=== PATIENT | male | born 1975 | race Caucasian/White ===

== ENCOUNTER 2019-07-05 19:10 | Emergency (ER) | payer OTHER, SELFPAY ==
--- NOTE | ~2019-07-05 | CT_ITS ---
EXAMINATION: CT brain wo con DATE: 07/05/2019 20:44 INDICATION: Head injury. TECHNIQUE: Computed tomography (CT) of the head was performed without intravenous contrast. The mA wa s adjusted according to patient size. Iterative reconstruction technique was employed. The dose-lengt h product was 605.33 mGy-cm. COMPARISON: None FINDINGS: There is no intracranial hemorrhage, acute infarction, or abnormal intracranial mass lesion . The ventricles are normal in size. There is mild mucosal thickening in the paranasal sinuses. The m astoid air cells are normal. The orbits are normal. IMPRESSION: 1. Normal brain. Reviewed, dictated and finalized at location A. IMPRESSION: 1. Normal brain.
--- NOTE | ~2019-07-05 | CT_ITS ---
EXAMINATION: CT cervical spine wo con DATE: 07/05/2019 20:45 INDICATION: Neck pain. TECHNIQUE: Computed tomography (CT) of the cervical spine was performed without intravenous contrast. Automated exposure control and iterative reconstruction technique were employed. The dose-length pro duct was 327.77 mGy-cm. COMPARISON: None FINDINGS: There is 4 degrees levocurvature of cervical spine. Vertebral body heights are normal. Ther e is moderately decreased disc height at C3-C4 and mildly decreased disc height at C4-C5. The followi ng disc levels are specifically discussed: C2-C3: There is no uncovertebral joint osteoarthritis. There is no facet joint osteoarthritis. There is no neural foraminal stenosis. There is no central canal stenosis. C3-C4: There is severe bilateral uncovertebral joint osteoarthritis. There is no facet joint osteoart hritis. There is mild bilateral neural foraminal stenosis. There is mild central canal stenosis. C4-C5: There is mild bilateral uncovertebral joint osteoarthritis. There is no facet joint osteoarthr itis. There is mild bilateral neural foraminal stenosis. There is mild central canal stenosis. C5-C6: There is no uncovertebral joint osteoarthritis. There is no facet joint osteoarthritis. There is no neural foraminal stenosis. There is no central canal stenosis. C6-C7: There is mild right uncovertebral joint osteoarthritis. There is no facet joint osteoarthritis . There is no neural foraminal stenosis. There is no central canal stenosis. C7-T1: There is no uncovertebral joint osteoarthritis. There is mild bilateral facet joint osteoarthr itis. There is no neural foraminal stenosis. There is no central canal stenosis. IMPRESSION: 1. No fracture. 2. Moderate cervical spondylosis. Reviewed, dictated and finalized at location A.
--- NOTE | ~2019-07-05 | CT_ITS ---
EXAMINATION: CT facial bones wo con DATE: 07/05/2019 20:45 INDICATION: Face injury. Jaw pain. TECHNIQUE: Computed tomography (CT) of the facial bones and maxillofacial region was performed withou t intravenous contrast. Automated exposure control and iterative reconstruction technique were employ ed. The dose-length product was 291.27 mGy-cm. COMPARISON: None. FINDINGS: There is soft tissue swelling of the chin. There is mild mucosal thickening in the paranasa l sinuses. There is a sagittal fracture of tooth 31. There are periapical lucencies around tooth 31. There are carious lesions of teeth 7, 9, and 10. There is rightward deviation the nasal septum. IMPRESSION: 1. Dental disease including fracture of tooth 31. Reviewed, dictated and finalized at location A.
[2019-07-05 19:24] VITALS: BP 139/93; PULSE 103; RESP 20; TEMP 36.8; O2SAT 96
[2019-07-05] MEDS: TETANUS,DIPHTHERIA,AC PERTUSSIS ADULT 0.5 ML (ADACEL) IM (19:36)
[2019-07-05] MEDS: KETOROLAC (*BKC) 60 MG/2 ML VIAL IM (20:05)
[2019-07-05] MEDS: MORPHINE SULFATE 4 MG/ML INJ IM (21:05)
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
[2019-07-05 21:22] VITALS: PULSE 77; O2SAT 98
== END 2019-07-05 21:24 | disposition home or self-care (01) ==
PROVIDERS: Emergency Provider Emergency Medicine
DX: S01.81XA Laceration without foreign body of other part of head, initial encounter (principal); S16.1XXA Strain of muscle, fascia and tendon at neck level, initial encounter; Y04.0XXA Assault by unarmed brawl or fight, initial encounter
CPT/HCPCS: 12013; 70450; 70486; 72125; 90471; 90715; 96372; 99282; 99284; J1885; J2270

== ENCOUNTER 2019-09-07 10:49 | Emergency (ER) | payer OTHER, SELFPAY ==
[2019-09-07 11:20] VITALS: BP 139/86; PULSE 77; RESP 16; TEMP 36.7; O2SAT 98
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
== END 2019-09-07 11:59 | disposition home or self-care (01) ==
PROVIDERS: Emergency Provider Emergency Medicine
DX: S60.450A Superficial foreign body of right index finger, initial encounter (principal)
CPT/HCPCS: 10120; 99283

== ENCOUNTER 2021-01-06 12:39 | Emergency (ER) | payer OTHER, SELFPAY ==
[2021-01-06 13:00] VITALS: BP 115/80; PULSE 93; RESP 18; TEMP 36.5; O2SAT 97
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
[2021-01-06] MEDS: cefTRIAXone 1 GM VIAL IM (13:36)
[2021-01-06] MEDS: ACETAMINOPHEN 325 MG TABLET 650 MG PO (13:36)
[2021-01-06 13:40] VITALS: BP 115/80; PULSE 93; RESP 18; TEMP 36.5; O2SAT 97
== END 2021-01-06 13:42 | disposition home or self-care (01) ==
PROVIDERS: Emergency Provider Emergency Medicine
DX: L03.116 Cellulitis of left lower limb (principal)
CPT/HCPCS: 96372; 99283; A9270; J0696